=== PATIENT | female | born 1940 | race Caucasian/White ===

== ENCOUNTER 2021-02-21 18:55 | Emergency (ER) | payer OTHER ==
[2021-02-21 19:30] VITALS: BMI 28.3
[2021-02-21] MEDS ORDERED: SODIUM CHLORIDE 1,000 ML IV STA (20:17)
[2021-02-21 21:46] LABS: BASO % 0.5 % (0-2.0); EOS % 0.1 % (0-4.5); HEMATOCRIT 40.9 % (32.4-45.2); HEMOGLOBIN 13.9 GM/dL (10.7-15.3); LYMPH % 1.6 % (8-40); MCH 30.4 pg (25.7-33.7); MEAN CELL VOLUME 89.3 fl (80-96); MEAN PLT VOLUME 9.6 fl (7.5-11.1); MONO % 3.1 % (3.8-10.2); NEUT % 94.7 % (42.8-82.8); PLATELET COUNT 160 K/MM3 (134-434); RBC 4.58 M/mm3 (3.60-5.2); RDW 12.9 % (11.6-15.6); WHITE BLOOD COUNT 10.2 K/mm3 (4.0-10.0)
[2021-02-21 21:56] LABS: EPI CELLS 32 /uL (0-25.1); HYALINE CASTS 12 /uL (0-3.1); URINE APPEARANCE CLOUDY; URINE BACTERIA 20 /uL (0-1359); URINE BILIRUBIN NEGATIVE (NEGATIVE); URINE COLOR DK YELLOW; URINE GLUCOSE (UA) NEGATIVE (NEGATIVE); URINE KETONE TRACE (NEGATIVE); URINE LEUK ESTERASE TRACE (NEGATIVE); URINE NITRITE NEGATIVE (NEGATIVE); URINE PROTEIN 1+ (NEGATIVE); URINE RBC 21 /uL (0-23.9); URINE WBC 25 /uL (0-25.8)
[2021-02-21 22:03] LABS: BLOOD UREA NITROGEN 20.4 mg/dL (7-18); CALCIUM 9.2 mg/dL (8.5-10.1)
[2021-02-21 22:05] LABS: ALBUMIN 3.6 g/dl (3.4-5.0)
[2021-02-21 22:07] LABS: CREATININE 1.1 mg/dL (0.55-1.3)
[2021-02-21 22:08] LABS: BILIRUBIN,TOTAL 1.8 mg/dL (0.2-1)
[2021-02-21 22:09] LABS: TOT PROT 6.8 g/dl (6.4-8.2)
[2021-02-21] MEDS ORDERED: NITROFURANTOIN MACROCRYSTAL 50 MG CAPSULE (FP) PO SCH (22:45)
[2021-02-21] MEDS ORDERED: NITROFURANTOIN MACROCRYSTAL 50 MG CAPSULE (FP) ONE (23:03)
[2021-02-21 23:26] VITALS: BP 150/73; PULSE 96; TEMP 98.3
[2021-02-21 23:26] LABS: PLATELET ESTIMATE ADEQUATE
== END 2021-02-21 23:35 | disposition home or self-care (01) ==
LOC: JER 18:55
PROC: 3E0337Z Introduction of Electrolytic and Water Balance Substance into Peripheral Vein, Percutaneous Approach (ICD-10-PCS; principal; 2021-02-21)
DX: N39.0 Urinary tract infection, site not specified (principal)
CPT/HCPCS: 36415; 80053; 81003; 85025; 87086; 99284-25; C9803; U0003; U0005

== ENCOUNTER 2021-02-24 16:37 | Inpatient (IN) | payer OTHER ==
[2021-02-24] MEDS ORDERED: LACTATED RINGERS SOLUTION 1000 ML INFUS.BAG IV ONE (18:37)
[2021-02-24] MEDS ORDERED: ACETAMINOPHEN 325 MG TABLET (FP) PO ONE (18:37)
[2021-02-24 19:13] LABS: BASO % 0.7 % (0-2.0); HEMATOCRIT 38.4 % (32.4-45.2); HEMOGLOBIN 13.3 GM/dL (10.7-15.3); LYMPH % 9.7 % (8-40); MCH 30.5 pg (25.7-33.7); MCHC 34.7 g/dl (32.0-36.0); MEAN CELL VOLUME 87.8 fl (80-96); MEAN PLT VOLUME 8.7 fl (7.5-11.1); MONO % 10.6 % (3.8-10.2); PLATELET COUNT 152 K/MM3 (134-434); RBC 4.38 M/mm3 (3.60-5.2); WHITE BLOOD COUNT 5.8 K/mm3 (4.0-10.0)
[2021-02-24 19:28] LABS: ALBUMIN 3.1 g/dl (3.4-5.0); BLOOD UREA NITROGEN 18.4 mg/dL (7-18); CALCIUM 8.3 mg/dL (8.5-10.1)
[2021-02-24 19:32] LABS: BILIRUBIN,TOTAL 1.7 mg/dL (0.2-1); TOT PROT 6.7 g/dl (6.4-8.2)
[2021-02-24] MEDS ORDERED: ACETAMINOPHEN 325 MG TABLET (FP) ONE (19:53)
[2021-02-24 19:58] LABS: EPI CELLS 13 /uL (0-25.1); HYALINE CASTS 1 /uL (0-3.1); PH,URINE 5.5 (5.0-8.0); URINE APPEARANCE CLEAR; URINE BACTERIA 339 /uL (0-1359); URINE BILIRUBIN NEGATIVE (NEGATIVE); URINE COLOR YELLOW; URINE GLUCOSE (UA) NEGATIVE (NEGATIVE); URINE KETONE 3+ (NEGATIVE); URINE LEUK ESTERASE NEGATIVE (NEGATIVE); URINE NITRITE NEGATIVE (NEGATIVE); URINE PROTEIN 1+ (NEGATIVE); URINE RBC 10 /uL (0-23.9); URINE WBC 55 /uL (0-25.8)
[2021-02-24 20:12] LABS: PROTHROMBIN TIME (PATIENT) 12.3 SEC (9.7-13.0)
[2021-02-24 20:14] LABS: ACTIVATED PTT 26.3 SECONDS (25.2-36.5)
[2021-02-24 20:16] LABS: LACTIC ACID 2.5 mmol/L (0.4-2.0)
[2021-02-24 20:27] LABS: CHLORIDE 106 mmol/L (98-107); SODIUM 138 mmol/L (136-145)
[2021-02-24 20:28] LABS: CALCIUM 8.6 mg/dL (8.5-10.1)
[2021-02-24 20:29] LABS: ANION GAP 9 MMOL/L (8-16); BLOOD UREA NITROGEN 18.8 mg/dL (7-18); CO2 24 mmol/L (21-32); GLUCOSE,RANDOM 143 mg/dL (74-106)
[2021-02-24] MEDS ORDERED: POTASSIUM CHLORIDE TABS 20 MEQ TABLET.ER (FP) PO ONE ×2 (21:00→21:39)
[2021-02-24] MEDS ORDERED: CEFTRIAXONE 1 GM in DEXTROSE 5%-WATER - 50 ML IVPB ONE (22:08)
[2021-02-24] MEDS ORDERED: CEFTRIAXONE 1 GM/50 ML BAG ONE (22:11)
[2021-02-25 01:49] LABS: MAGNESIUM 2.2 mg/dL (1.8-2.4)
[2021-02-25] MEDS: SODIUM CHLORIDE 1,000 ML IV SCH (02:00)
[2021-02-25] MEDS ORDERED: MELATONIN 5 MG TABLETS PO ONE (04:45)
[2021-02-25] MEDS: HEPARIN NA (PORCINE) 5,000 UNITS/ML 1ML VIAL SQ SCH ×3 (06:50→22:15)
[2021-02-25 08:35] VITALS: BMI 29.1
[2021-02-25] MEDS ORDERED: DEXTROSE 5%-WATER - 50 ML IVPB ONE (10:31)
[2021-02-25] MEDS ORDERED: cefTRIAXone SODIUM 1 GM VIAL ONE (10:31)
[2021-02-25] MEDS: LOSARTAN POTASSIUM 50 MG TABLET PO SCH (10:41)
[2021-02-25] MEDS: CEFTRIAXONE 1 GM in DEXTROSE 5%-WATER - 50 ML IVPB SCH (10:41)
[2021-02-25] MEDS: LEVOTHYROXINE NA 50 MCG TABLET (FP) PO SCH (10:54)
[2021-02-25 12:22] LABS: EOS % 8.5 % (0-4.5); LYMPH % 8.5 % (8-40); MCH 30.6 pg (25.7-33.7); MCHC 35.2 g/dl (32.0-36.0); MEAN CELL VOLUME 86.8 fl (80-96); MEAN PLT VOLUME 8.4 fl (7.5-11.1); MONO % 9.4 % (3.8-10.2); NEUT % 73.6 % (42.8-82.8); PLATELET COUNT 163 K/MM3 (134-434); RBC 4.26 M/mm3 (3.60-5.2); WHITE BLOOD COUNT 6.5 K/mm3 (4.0-10.0)
[2021-02-25 12:36] LABS: BLOOD UREA NITROGEN 13.8 mg/dL (7-18); CALCIUM 7.9 mg/dL (8.5-10.1)
[2021-02-25 12:39] LABS: CREATININE 0.9 mg/dL (0.55-1.3)
[2021-02-25 12:41] LABS: BILIRUBIN,TOTAL 1.3 mg/dL (0.2-1); TOT PROT 6.2 g/dl (6.4-8.2)
[2021-02-26] MEDS: SODIUM CHLORIDE 1,000 ML IV SCH (05:26)
[2021-02-26] MEDS: HEPARIN NA (PORCINE) 5,000 UNITS/ML 1ML VIAL SQ SCH ×3 (06:21→21:52)
[2021-02-26] MEDS: LEVOTHYROXINE NA 50 MCG TABLET (FP) PO SCH (06:21)
[2021-02-26] MEDS ORDERED: LEVOTHYROXINE NA 50 MCG TABLET (FP) PO SCH (07:00)
[2021-02-26 08:27] LABS: BASO % 0.6 % (0-2.0); EOS % 9.8 % (0-4.5); HEMATOCRIT 34.1 % (32.4-45.2); HEMOGLOBIN 12.1 GM/dL (10.7-15.3); LYMPH % 16.2 % (8-40); MCHC 35.5 g/dl (32.0-36.0); MEAN CELL VOLUME 87.2 fl (80-96); MEAN PLT VOLUME 8.5 fl (7.5-11.1); MONO % 12.9 % (3.8-10.2); NEUT % 60.5 % (42.8-82.8); PLATELET COUNT 155 K/MM3 (134-434); RBC 3.91 M/mm3 (3.60-5.2); RDW 12.8 % (11.6-15.6); WHITE BLOOD COUNT 5.7 K/mm3 (4.0-10.0)
[2021-02-26 08:41] LABS: BLOOD UREA NITROGEN 13.2 mg/dL (7-18); CALCIUM 7.5 mg/dL (8.5-10.1); MAGNESIUM 2.2 mg/dL (1.8-2.4)
[2021-02-26 08:44] LABS: ALBUMIN 2.6 g/dl (3.4-5.0); CREATININE 0.8 mg/dL (0.55-1.3); PHOSPHOROUS 2.7 mg/dL (2.5-4.9)
[2021-02-26 08:45] LABS: BILIRUBIN,TOTAL 0.9 mg/dL (0.2-1); TOT PROT 5.3 g/dl (6.4-8.2)
[2021-02-26] MEDS ORDERED: cefTRIAXone SODIUM 1 GM VIAL ONE (10:00)
[2021-02-26] MEDS ORDERED: DEXTROSE 5%-WATER - 50 ML IVPB ONE (10:00)
[2021-02-26] MEDS: CEFTRIAXONE 1 GM in DEXTROSE 5%-WATER - 50 ML IVPB SCH (10:23)
[2021-02-26] MEDS: LOSARTAN POTASSIUM 50 MG TABLET PO SCH (10:24)
[2021-02-26] MEDS ORDERED: POTASSIUM CHLORIDE TABS 20 MEQ TABLET.ER (FP) PO ONE (13:31)
[2021-02-27] MEDS ORDERED: ACETAMINOPHEN 325 MG TABLET (FP) PO ONE ×2 (05:08)
[2021-02-27] MEDS: HEPARIN NA (PORCINE) 5,000 UNITS/ML 1ML VIAL SQ SCH ×3 (06:33→21:48)
[2021-02-27] MEDS: LEVOTHYROXINE NA 50 MCG TABLET (FP) PO SCH (06:33)
[2021-02-27 08:50] LABS: BASO % 0.7 % (0-2.0); EOS % 8.5 % (0-4.5); HEMATOCRIT 33.9 % (32.4-45.2); HEMOGLOBIN 11.9 GM/dL (10.7-15.3); LYMPH % 24.3 % (8-40); MCH 30.7 pg (25.7-33.7); MEAN CELL VOLUME 87.6 fl (80-96); MEAN PLT VOLUME 9.2 fl (7.5-11.1); MONO % 12.6 % (3.8-10.2); NEUT % 53.9 % (42.8-82.8); PLATELET COUNT 168 K/MM3 (134-434); RBC 3.87 M/mm3 (3.60-5.2); RDW 12.8 % (11.6-15.6); WHITE BLOOD COUNT 5.4 K/mm3 (4.0-10.0)
[2021-02-27 09:09] LABS: PHOSPHOROUS 2.5 mg/dL (2.5-4.9)
[2021-02-27 09:10] LABS: ALBUMIN 2.8 g/dl (3.4-5.0); BLOOD UREA NITROGEN 11.8 mg/dL (7-18)
[2021-02-27 09:11] LABS: BILIRUBIN,TOTAL 0.9 mg/dL (0.2-1); TOT PROT 5.5 g/dl (6.4-8.2)
[2021-02-27 09:13] LABS: CALCIUM 7.8 mg/dL (8.5-10.1); CREATININE 0.8 mg/dL (0.55-1.3); MAGNESIUM 2.2 mg/dL (1.8-2.4)
[2021-02-27] MEDS ORDERED: cefTRIAXone SODIUM 1 GM VIAL ONE (09:39)
[2021-02-27] MEDS ORDERED: DEXTROSE 5%-WATER - 50 ML IVPB ONE (09:39)
[2021-02-27] MEDS: CEFTRIAXONE 1 GM in DEXTROSE 5%-WATER - 50 ML IVPB SCH (09:45)
[2021-02-27] MEDS: LOSARTAN POTASSIUM 50 MG TABLET PO SCH (09:45)
[2021-02-28] MEDS: HEPARIN NA (PORCINE) 5,000 UNITS/ML 1ML VIAL SQ SCH ×3 (06:22→21:27)
[2021-02-28] MEDS: LEVOTHYROXINE NA 50 MCG TABLET (FP) PO SCH (06:22)
[2021-02-28 08:31] LABS: HEMATOCRIT 34.3 % (32.4-45.2); HEMOGLOBIN 11.7 GM/dL (10.7-15.3); MCH 30.3 pg (25.7-33.7); MCHC 34.2 g/dl (32.0-36.0); MEAN CELL VOLUME 88.4 fl (80-96); MEAN PLT VOLUME 9.1 fl (7.5-11.1); PLATELET COUNT 182 K/MM3 (134-434); RBC 3.87 M/mm3 (3.60-5.2); WHITE BLOOD COUNT 5.8 K/mm3 (4.0-10.0)
[2021-02-28 08:50] LABS: ALBUMIN 2.8 g/dl (3.4-5.0); BLOOD UREA NITROGEN 12.7 mg/dL (7-18)
[2021-02-28 08:53] LABS: CREATININE 0.8 mg/dL (0.55-1.3)
[2021-02-28 08:54] LABS: BILIRUBIN,TOTAL 0.9 mg/dL (0.2-1); TOT PROT 5.7 g/dl (6.4-8.2)
[2021-02-28] MEDS: LOSARTAN POTASSIUM 50 MG TABLET PO SCH (09:06)
[2021-02-28 16:55] LABS: ALBUMIN 3.2 g/dl (3.4-5.0)
[2021-02-28 16:58] LABS: BILIRUBIN,DIRECT 0.2 mg/dL (0.0-0.2)
[2021-02-28 17:00] LABS: BILIRUBIN,TOTAL 0.8 mg/dL (0.2-1); TOT PROT 6.4 g/dl (6.4-8.2)
[2021-03-01] MEDS: HEPARIN NA (PORCINE) 5,000 UNITS/ML 1ML VIAL SQ SCH ×2 (06:04→13:56)
[2021-03-01] MEDS: LEVOTHYROXINE NA 50 MCG TABLET (FP) PO SCH (06:04)
[2021-03-01 08:02] VITALS: BP 137/80; PULSE 76; TEMP 98.3
[2021-03-01 08:19] LABS: HEMOGLOBIN 12.1 GM/dL (10.7-15.3); MCH 30.4 pg (25.7-33.7); MCHC 34.5 g/dl (32.0-36.0); MEAN CELL VOLUME 88.2 fl (80-96); MEAN PLT VOLUME 9.5 fl (7.5-11.1); PLATELET COUNT 196 K/MM3 (134-434); RBC 3.96 M/mm3 (3.60-5.2); WHITE BLOOD COUNT 6.5 K/mm3 (4.0-10.0)
[2021-03-01 09:27] LABS: ALBUMIN 3.1 g/dl (3.4-5.0)
[2021-03-01 09:30] LABS: CREATININE 0.7 mg/dL (0.55-1.3); PHOSPHOROUS 3.3 mg/dL (2.5-4.9)
[2021-03-01 09:31] LABS: URINE APPEARANCE CLEAR; URINE BILIRUBIN NEGATIVE (NEGATIVE); URINE COLOR YELLOW; URINE GLUCOSE (UA) NEGATIVE (NEGATIVE); URINE KETONE NEGATIVE (NEGATIVE); URINE LEUK ESTERASE NEGATIVE (NEGATIVE); URINE NITRITE NEGATIVE (NEGATIVE); URINE PROTEIN NEGATIVE (NEGATIVE); URINE UROBILINOGEN 0.2 mg/dL (0.2-1.0)
[2021-03-01 09:33] LABS: BILIRUBIN,TOTAL 0.9 mg/dL (0.2-1); TOT PROT 5.7 g/dl (6.4-8.2)
[2021-03-01] MEDS: LOSARTAN POTASSIUM 50 MG TABLET PO SCH (10:03)
[2021-03-01 14:28] LABS: ALPHA-1-ANTITRYPSIN 189 mg/dL (101-187)
[2021-03-01 16:08] LABS: HEP B CORE AB, TOT Negative (Negative)
== END 2021-03-01 15:29 | disposition home or self-care (01) | DRG 690 ==
LOC: JER 16:37 → JERBED 22:13 → J6S 02-25 03:44
PROVIDERS: ADMIT Hospitalist; ATTEND Internal Medicine
DX: N39.0 Urinary tract infection, site not specified (principal); E87.2 Acidosis; E78.5 Hyperlipidemia, unspecified; E03.9 Hypothyroidism, unspecified; I44.7 Left bundle-branch block, unspecified; R74.01 Elevation of levels of liver transaminase levels; I10 Essential (primary) hypertension; E87.5 Hyperkalemia; M79.604 Pain in right leg; D72.12 Drug rash with eosinophilia and systemic symptoms syndrome; T37.8X5A Adverse effect of other specified systemic anti-infectives and antiparasitics, initial encounter; K82.4 Cholesterolosis of gallbladder; E86.0 Dehydration
CPT/HCPCS: 36415; 71045-TC-FY; 74176-TC; 76705-TC; 80048; 80053; 80076; 81003; 82103; 83516; 83540; 83550; 83605; 83735; 84100; 84439; 84443; 84480; 84484; 85025; 85027; 85610; 85730; 86704; 86706; 86707; 86708; 86709; 86850; 86900; 86901; 87040; 87086; 87340; 87902; 93005; 93010; 93971-TC; 97116-GP; 97161-GP; 99285-25; C9803; J1644; U0003; U0005

== ENCOUNTER 2022-08-29 17:26 | Emergency (ER) | payer OTHER ==
[2022-08-29 18:26] VITALS: RESP 18; TEMP 97.9; BMI 29.2
[2022-08-29 19:45] LABS: BASO % 1.1 % (0-2.0); EOS % 2.9 % (0-4.5); HEMATOCRIT 38.4 % (32.4-45.2); HEMOGLOBIN 13.2 GM/dL (10.7-15.3); LYMPH % 19.6 % (8-40); MCH 30.6 pg (25.7-33.7); MCHC 34.3 g/dl (32.0-36.0); MEAN CELL VOLUME 89.2 fl (80-96); MEAN PLT VOLUME 8.5 fl (7.5-11.1); MONO % 9.1 % (3.8-10.2); NEUT % 67.3 % (42.8-82.8); PLATELET COUNT 216 10^3/uL (134-434); RBC 4.31 M/mm3 (3.60-5.2)
[2022-08-29 20:01] LABS: CALCIUM 9.3 mg/dL (8.5-10.1)
[2022-08-29 20:02] LABS: ALBUMIN 3.8 g/dl (3.4-5.0); BLOOD UREA NITROGEN 21.6 mg/dL (7-18); MAGNESIUM 2.2 mg/dL (1.8-2.4)
[2022-08-29 20:05] LABS: CREATININE 0.9 mg/dL (0.55-1.3)
[2022-08-29 20:06] LABS: BILIRUBIN,TOTAL 0.8 mg/dL (0.2-1)
[2022-08-29 20:25] LABS: ACTIVATED PTT 27.4 SECONDS (25.2-36.5); INR 1.02 (0.83-1.09); PROTHROMBIN TIME (PATIENT) 11.7 SEC (9.7-13.0)
[2022-08-29 21:17] LABS: URINE APPEARANCE CLEAR; URINE BILIRUBIN NEGATIVE (NEGATIVE); URINE COLOR YELLOW; URINE GLUCOSE (UA) NEGATIVE (NEGATIVE); URINE KETONE NEGATIVE (NEGATIVE); URINE LEUK ESTERASE NEGATIVE (NEGATIVE); URINE NITRITE NEGATIVE (NEGATIVE); URINE PROTEIN NEGATIVE (NEGATIVE); URINE UROBILINOGEN 0.2 mg/dL (0.2-1.0)
[2022-08-29] MEDS ORDERED: LIDOCAINE PATCH REMOVAL MC SCH (22:00)
[2022-08-29] MEDS ORDERED: ACETAMINOPHEN 325 MG TABLET (FP) PO ONE (22:30)
[2022-08-29] MEDS ORDERED: LIDOCAINE 5% TOPICAL PATCH TP ONE (22:30)
[2022-08-29] MEDS ORDERED: ACETAMINOPHEN 325 MG TABLET (FP) ONE (23:30)
[2022-08-29] MEDS ORDERED: LIDOCAINE 5% TOPICAL PATCH ONE (23:30)
[2022-08-30 00:18] VITALS: BP 164/74; PULSE 75
== END 2022-08-30 00:37 | disposition home or self-care (01) ==
LOC: JER 17:26
DX: R42 Dizziness and giddiness (principal)
CPT/HCPCS: 0241U-QW; 36415; 70450-TC; 71046-TC-FY; 80053; 81003; 82550; 82962; 83735; 84443; 84484; 85025; 85610; 85730; 86850; 86900; 86901; 87086; 93005; 93010; 99285-25